=== PATIENT | female | born 1970 | race Caucasian/White ===

== ENCOUNTER 2022-12-13 14:32 | Emergency (ER) | payer OTHER ==
[~2022-12-13] VITALS: Ht 165.1 cm; Wt 78.0 kg
[~2022-12-13 14:32] MED LIST: CALCIUM500 MG PO; DILTIAZEM ER120 M2 PO; FUROSEMIDE20 MG PO; GABAPENTIN300 MG PO; METOPROLOL SUCC25 MG PO; MULTI VITAMIN1 EACH PO; OMEPRAZOLE20 MG PO; PANTOPRAZOLE SO40 MG PO; PERCOCET 5-3251 EACH PO; POTASSIUM CHLO20 ME1 PO; SYNTHROID25 MCG PO
[2022-12-13] MEDS ORDERED: POTASSIUM CHLO10 MEQ PO (14:44)
[2022-12-13 14:52] LABS: BASOPHILS 0.8 % (0-2); EOSINOPHILS 0.8 % (0-6); HEMATOCRIT 43.4 % (35.0-50.0); HEMOGLOBIN 14.3 g/dL (12.0-18.0); LYMPHOCYTES 34.5 % (24-44); MCH 30.6 (27-36); MCHC 32.9 g/dl (30-36); MCV 92.9 fl (81-99); MONOCYTES 8.8 % (0-12); NEUTROPHILS 55.1 % (39-80); PLATELET COUNT 217 K/uL (140-440); RBC 4.67 M/ul (4.3-5.7); RDW 13.2 (10.5-15.0)
[2022-12-13 15:10] LABS: ALBUMIN 4.4 g/dL (3.4-5.0); ALBUMIN/GLOBULIN RATIO 1.33 (1.1-2.4); ANION GAP 10.7 (7-21); BILIRUBIN, TOTAL 0.4 ng/dL (0.2-1.0); BUN/CREATININE RATIO 25.67 (6.0-28.6); CALCIUM 9.1 mg/dL (8.5-10.1); CREATININE, SERUM 0.74 mg/dL (0.55-1.02); MAGNESIUM 1.9 mg/dL (1.8-2.4); POTASSIUM 3.7 mmol/L (3.5-5.1); PROTEIN, TOTAL 7.7 g/dL (6.4-8.2)
[2022-12-13 15:33] LABS: TSH, 3RD GENERATION 0.358 uIU/mL (0.358-3.740)
[2022-12-13 17:28] VITALS: BP 137/88
--- NOTE | 2022-12-14 06:29 | EKG ---
[facility] [address] [place], [place] [address] Signed Sinus tachycardia Anterior infarct , age undetermined Abnormal ECG No previous ECGs available Confirmed by OSMANY AZUL MD ([id number]) on 12/14/2022 6:29:22 AM Electronically Signed By: OSMANY AZUL 12/14/22 0629 PATIENT NAME: LIZETH DRAPER Electrocardiogram DATE OF : 66 PHYSICIAN: OSMANY AZUL REPORT #: [id number] REPORT IS CONFIDENTIAL AND NOT TO BE RELEASED WITHOUT AUTHORIZATION
== END 2022-12-13 17:28 | disposition home or self-care (01) ==
LOC: ED 14:32
PROVIDERS: Emergency Medicine
DX: R55 Syncope and collapse (principal); R07.89 Other chest pain; I10 Essential (primary) hypertension; R73.03 Prediabetes; Z88.0 Allergy status to penicillin; Z91.040 Latex allergy status; Z79.899 Other long term (current) drug therapy
CPT/HCPCS: 36415; 71045; 80053; 83735; 84439; 84443; 84484; 85025; 85379; 93005; 93010; A9270